=== PATIENT | female | born 1940 | race American Indian/Alaskan Native ===

== ENCOUNTER 2019-06-17 12:15 | Inpatient (IN) | payer MEDICARE, OTHER ==
[2019-06-17 13:01] LABS: Hematocrit 30.6 % (30.3-42.9); Hemoglobin 10.2 gm/dl (10.1-14.3)
[2019-06-17 13:02] LABS: Basophils % (Auto) 0.5 % (0.0-1.8); Eosinophils # (Auto) 0.1 K/mm3 (0.0-0.4); Eosinophils % (Auto) 1.9 % (0.0-4.3); Lymphocytes # (Auto) 1.1 K/mm3 (1.2-5.4); Lymphocytes % (Auto) 23.8 % (13.4-35.0); Mean Corpuscular HGB Conc 33 % (30-34); Mean Corpuscular Volume 99 fl (79-97); Monocytes # (Auto) 0.3 K/mm3 (0.0-0.8); Monocytes % (Auto) 6.9 % (0.0-7.3); Platelet Count 173 K/mm3 (140-440); Red Cell Distribution Width 14.2 % (13.2-15.2)
--- NOTE | 2019-06-17 13:22 | Emergency Department Report ---
ED Syncope HPI - General Chief Complaint: Syncope Stated Complaint: DIZZNESS Time Seen by Provider: 06/17/19 12:32 - History of Present Illness Initial Comments: 79-year-old -Citizen Of [place] female patient with history of hypertension, stage V CKD, and OK (2017) presents to the ED via EMS for dizziness and syncopal episode LENS MAKER. Patient states she was eating on the couch when she suddenly began to feel dizzy. Her states that she lost consciousness for about 30 seconds. They deny any seizure-like activity or head trauma. Patient denies any chest pain, shortness of breath, abdominal pain, urinary symptoms, constipation/hematochezia/melena, vision changes, headache, fevers/chills/sweats, or other symptoms. Patient also denies any current dizziness or recent head trauma. She states she was started on torsemide for he r blood pressure about 1 month ago, but denies any history of CHF. She admits to car ride from [place] yesterday, but denies any leg pain/swelling, history of DVT/PE. Patient states she did have some right-sided neck pain prior to the episode of dizziness and syncope, but denies any injury, stiffness, or fever. Timing/Prior Episodes: no prior history, single episode today - Related Data Allergies/Adverse Reactions: Allergies No Known Allergies Allergy (Verified 06/17/19 12:43) ED Review of Systems ROS: Stated complaint: DIZZNESS Other details as noted in HPI ED Past Medical Hx - Past Medical History Previous Medical History?: Yes Hx Hypertension: Yes Hx Heart Attack/AMI: Yes Additional medical history: CKD (no dialysis) - Surgical History Past Surgical History?: Yes Additional Surgical History: Cardiac stent x1 - Social History Smoking Status: Unknown if ever smoked Substance Use Type: None ED Physical Exam - General Limitations: No Limitations General appearance: alert, in no apparent distress - Head Head exam: Present: atraumatic, normocephalic - Eye Eye exam: Present: normal appearance, PERRL, EOMI. Absent: scleral icterus - ENT ENT exam: Present: normal exam, normal orophraynx - Neck Neck exam: Present: normal inspection, tenderness (mild right paraspinal), full ROM. Absent: lymphadenopathy, thyromegaly - Respiratory Respiratory exam: Present: normal lung sounds bilaterally. Absent: respiratory distress, chest wall tenderness - Cardiovascular Cardiovascular Exam: Present: regular rate, normal rhythm, normal heart sounds. Absent: systolic murmur, diastolic murmur, rubs, gallop - GI/Abdominal GI/Abdominal exam: Present: soft, normal bowel sounds. Absent: distended, tenderness, guarding, rebound, rigid - Extremities Exam Extremities exam: Absent: joint swelling, calf tenderness - Back Exam Back exam: Present: normal inspection, full ROM. Absent: paraspinal tenderness, vertebral tenderness - Neurological Exam Neurological exam: Present: alert, oriented X3, CN II-XII intact. Absent: motor sensory deficit - Expanded Neurological Exam Expanded Speech: Present: fluid speech Cerebellar function: Finger to Nose: Normal, Heel to [place]: Normal, Romberg: Normal Upper motor neuron: Pronator Drift: Normal Sensory exam: Upper Extremity Light Touch: Normal, Lower Extremity Light Touch: Normal Motor strength exam: RUE: 5, LUE: 5, RLE: 5, LLE: 5 - Psychiatric Psychiatric exam: Present: normal affect, normal mood - Skin Skin exam: Present: warm, dry, intact, normal color. Absent: rash, cyanosis, diaphoretic ED Course Vital Signs 06/17/19 06/17/19 06/17/19 12:36 12:42 14:00 Temperature 98.1 F Pulse Rate 64 68 Respiratory 16 16 Rate Blood Pressure 97/51 100/48 [Right] O2 Sat by Pulse 100 100 98 Oximetry 06/17/19 06/17/19 15:11 16:27 Temperature Pulse Rate 61 55 L Respiratory 16 16 Rate Blood Pressure 110/51 117/58 [Right] O2 Sat by Pulse 99 100 Oximetry - Reevaluation(s) Reevaluation #1: 06/17/19 14:11 Glucose noted to be at 279patient denies any history of ED Medical Decision Making - Lab Data Result diagrams: 06/17/19 12:37 06/17/19 12:37 Lab Results 06/17/19 06/17/19 06/17/19 Range/Units 12:37 12:37 12:37 WBC 4.4 L (4.5-11.0) K/mm3 RBC 3.10 L (3.65-5.03) M/mm3 Hgb 10.2 (10.1-14.3) gm/dl Hct 30.6 (30.3-42.9) % MCV 99 H (79-97) fl MCH 33 H (28-32) pg MCHC 33 (30-34) % RDW 14.2 (13.2-15.2) % Plt Count 173 (140-440) K/mm3 Lymph % (Auto) 23.8 (13.4-35.0) % [place] % (Auto) 6.9 (0.0-7.3) % Eos % (Auto) 1.9 (0.0-4.3) % Baso % (Auto) 0.5 (0.0-1.8) % Lymph # 1.1 L (1.2-5.4) K/mm3 [place] # 0.3 (0.0-0.8) K/mm3 Eos # 0.1 (0.0-0.4) K/mm3 Baso # 0.0 (0.0-0.1) K/mm3 Seg Neutrophils % 66.9 (40.0-70.0) % Seg Neutrophils # 3.0 (1.8-7.7) K/mm3 D-Dimer (0-234) ng/mlDDU Sodium 140 (137-145) mmol/L Potassium 4.1 (3.6-5.0) mmol/L Chloride 105.0 (98-107) mmol/L Carbon Dioxide 17 L (22-30) mmol/L Anion Gap 22 mmol/L BUN 35 H (7-17) mg/dL Creatinine 2.5 H (0.7-1.2) mg/dL Estimated GFR 22 ml/min BUN/Creatinine Ratio 14 % Glucose 279 H (65-100) mg/dL Calcium 9.0 (8.4-10.2) mg/dL Magnesium (1.7-2.3) mg/dL Total Bilirubin 0.30 (0.1-1.2) mg/dL AST 12 (5-40) units/L ALT < 5 L (7-56) units/L Alkaline Phosphatase 64 (35-129) units/L Total Creatine Kinase (30-135) units/L CK-MB (CK-2) (0.0-4.0) ng/mL CK-MB (CK-2) Rel Index (0-4) Troponin T < 0.010 (0.00-0.029) ng/mL Total Protein 7.5 (6.3-8.2) g/dL Albumin 3.8 L (3.9-5) g/dL Albumin/Globulin Ratio 1.0 % TSH (0.270-4.200) mlU/mL Urine Color (Yellow) Urine Turbidity (Clear) Urine pH (5.0-7.0) Ur Specific [place] (1.003-1.030) Urine Protein (Negative) mg/dL Urine Glucose (UA) (Negative) mg/dL Urine Ketones (Negative) mg/dL Urine Blood (Negative) Urine Nitrite (Negative) Urine Bilirubin (Negative) Urine Urobilinogen (<2.0) mg/dL Ur Leukocyte Esterase (Negative) Urine WBC (Auto) (0.0-6.0) /HPF Urine RBC (Auto) (0.0-6.0) /HPF U Epithel Cells (Auto) (0-13.0) /HPF Urine Bacteria (Auto) (Negative) /HPF Hyaline Casts /LPF Urine Mucus /HPF Urine Yeast (Budding) /HPF 06/17/19 06/17/19 06/17/19 Range/Units 12:37 12:37 14:40 WBC (4.5-11.0) K/mm3 RBC (3.65-5.03) M/mm3 Hgb (10.1-14.3) gm/dl Hct (30.3-42.9) % MCV (79-97) fl MCH (28-32) pg MCHC (30-34) % RDW (13.2-15.2) % Plt Count (140-440) K/mm3 Lymph % (Auto) (13.4-35.0) % [place] % (Auto) (0.0-7.3) % Eos % (Auto) (0.0-4.3) % Baso % (Auto) (0.0-1.8) % Lymph # (1.2-5.4) K/mm3 [place] # (0.0-0.8) K/mm3 Eos # (0.0-0.4) K/mm3 Baso # (0.0-0.1) K/mm3 Seg Neutrophils % (40.0-70.0) % Seg Neutrophils # (1.8-7.7) K/mm3 D-Dimer 481.86 H (0-234) ng/mlDDU Sodium (137-145) mmol/L Potassium (3.6-5.0) mmol/L Chloride (98-107) mmol/L Carbon Dioxide (22-30) mmol/L Anion Gap mmol/L BUN (7-17) mg/dL Creatinine (0.7-1.2) mg/dL Estimated GFR ml/min BUN/Creatinine Ratio % Glucose (65-100) mg/dL Calcium (8.4-10.2) mg/dL Magnesium 2.10 (1.7-2.3) mg/dL Total Bilirubin (0.1-1.2) mg/dL AST (5-40) units/L ALT (7-56) units/L Alkaline Phosphatase (35-129) units/L Total Creatine Kinase 136 H (30-135) units/L CK-MB (CK-2) 1.3 (0.0-4.0) ng/mL CK-MB (CK-2) Rel Index 0.9 (0-4) Troponin T (0.00-0.029) ng/mL Total Protein (6.3-8.2) g/dL Albumin (3.9-5) g/dL Albumin/Globulin Ratio % TSH (0.270-4.200) mlU/mL Urine Color (Yellow) Urine Turbidity (Clear) Urine pH (5.0-7.0) Ur Specific [place] (1.003-1.030) Urine Protein (Negative) mg/dL Urine Glucose (UA) (Negative) mg/dL Urine Ketones (Negative) mg/dL Urine Blood (Negative) Urine Nitrite (Negative) Urine Bilirubin (Negative) Urine Urobilinogen (<2.0) mg/dL Ur Leukocyte Esterase (Negative) Urine WBC (Auto) (0.0-6.0) /HPF Urine RBC (Auto) (0.0-6.0) /HPF U Epithel Cells (Auto) (0-13.0) /HPF Urine Bacteria (Auto) (Negative) /HPF Hyaline Casts /LPF Urine Mucus /HPF Urine Yeast (Budding) /HPF 06/17/19 06/17/19 Range/Units 14:40 15:36 WBC (4.5-11.0) K/mm3 RBC (3.65-5.03) M/mm3 Hgb (10.1-14.3) gm/dl Hct (30.3-42.9) % MCV (79-97) fl MCH (28-32) pg MCHC (30-34) % RDW (13.2-15.2) % Plt Count (140-440) K/mm3 Lymph % (Auto) (13.4-35.0) % [place] % (Auto) (0.0-7.3) % Eos % (Auto) (0.0-4.3) % Baso % (Auto) (0.0-1.8) % Lymph # (1.2-5.4) K/mm3 [place] # (0.0-0.8) K/mm3 Eos # (0.0-0.4) K/mm3 Baso # (0.0-0.1) K/mm3 Seg Neutrophils % (40.0-70.0) % Seg Neutrophils # (1.8-7.7) K/mm3 D-Dimer (0-234) ng/mlDDU Sodium (137-145) mmol/L Potassium (3.6-5.0) mmol/L Chloride (98-107) mmol/L Carbon Dioxide (22-30) mmol/L Anion Gap mmol/L BUN (7-17) mg/dL Creatinine (0.7-1.2) mg/dL Estimated GFR ml/min BUN/Creatinine Ratio % Glucose (65-100) mg/dL Calcium (8.4-10.2) mg/dL Magnesium (1.7-2.3) mg/dL Total Bilirubin (0.1-1.2) mg/dL AST (5-40) units/L ALT (7-56) units/L Alkaline Phosphatase (35-129) units/L Total Creatine Kinase (30-135) units/L CK-MB (CK-2) (0.0-4.0) ng/mL CK-MB (CK-2) Rel Index (0-4) Troponin T (0.00-0.029) ng/mL Total Protein (6.3-8.2) g/dL Albumin (3.9-5) g/dL Albumin/Globulin Ratio % TSH 1.050 (0.270-4.200) mlU/mL Urine Color Yellow (Yellow) Urine Turbidity Slightly-cloudy (Clear) Urine pH 6.0 (5.0-7.0) Ur Specific [place] 1.012 (1.003-1.030) Urine Protein <15 mg/dl (Negative) mg/dL Urine Glucose (UA) Neg (Negative) mg/dL Urine Ketones Neg (Negative) mg/dL Urine Blood Neg (Negative) Urine Nitrite Neg (Negative) Urine Bilirubin Neg (Negative) Urine Urobilinogen < 2.0 (<2.0) mg/dL Ur Leukocyte Esterase Lg (Negative) Urine WBC (Auto) 74.0 H (0.0-6.0) /HPF Urine RBC (Auto) 10.0 (0.0-6.0) /HPF U Epithel Cells (Auto) 13.0 (0-13.0) /HPF Urine Bacteria (Auto) 1+ (Negative) /HPF Hyaline Casts 3 /LPF Urine Mucus Few /HPF Urine Yeast (Budding) 1+ /HPF - Radiology Data Radiology results: report reviewed CHEST 1 VIEW INDICATION / CLINICAL INFORMATION: syncope. COMPARISON: None available. FINDINGS: SUPPORT DEVICES: None. HEART / MEDIASTINUM: No significant abnormality. LUNGS / PLEURA: No significant pulmonary or pleural abnormality. No pneumothorax. ADDITIONAL FINDINGS: No significant additional findings. IMPRESSION: 1. No acute findings. CT head/brain wo con INDICATION / CLINICAL INFORMATION: 79 years Female; syncope. TECHNIQUE: Routine CT head without contrast. All CT scans at this location are performed using CT dose reduction for ALARA by means of automated exposure control. COMPARISON: None. FINDINGS: BRAIN / INTRACRANIAL CONTENTS: There is moderate cerebral white matter disease most consistent with microvascular angiopathy. There is no CT evidence of acute intracranial hemorr leroy or significant mass effect. There is mild cerebral atrophy. The ventricular system is corresp ondingly appropriate in size and configuration. There is calcification along the lateral aspect of the right temporal lobe measuring 1.9 cm in greatest transverse dimension. This finding may reflect calcified meningioma. However, there is a smaller focus of calcification posteriorly and the findings may reflect incidental hyperostosis. There is mild degree of mass effect upon the lateral right temporal lobe without significant adjacent edema. ORBITS: No significant abnormality of visualized orbits. SINUSES / MASTOIDS: No significant abnormality the visualized paranasal sinuses or mastoid air cells. CRANIOCERVICAL JUNCTION: No significant abnormality. ADDITIONAL FINDINGS: None. IMPRESSION: 1. There is moderate microvascular angiopathy without CT ends of acute intracra nial hemorrhage. 2. There is a 1.9 cm focus of calcification along the lateral right temporal lobe as detailed above. CT cervical spine wo con INDICATION / CLINICAL INFORMATION: 79 years Female; MAIN: syncope, pain NO C COLLAR. TECHNIQUE: Axial CT images of the cervical spine were obtained. Sagittal and coronal reformatted images were produced. All CT scans at this location are performed using CT dose reduction for ALARA by means of automated exposure control. COMPARISON: None available. FINDINGS: POST-SURGICAL CHANGES: None. ALIGNMENT: There is slight curvature of the cervical spine, convex toward the left at. There is minimal anterolisthesis at C3-4 which appears to be on a degenerative basis given the facet joint hypertrophy. VERTEBRAE: There are multilevel degenerative endplate changes involving the cervical spine, particularly at C4-5. However, there is no definitive CT evidence of acute fracture involving the cervical spine. INTRAVERTEBRAL DISCS: The left facet and uncovertebral joint hypertrophy at C2-3 results in mild left neural foraminal narrowing at. There is moderate to marked foraminal narrowing bilaterally at C3-4. The central disc bulge effaces the ventral subarachnoid space. The posterior spondylosis at C4-5 also effaces the ventral subarachnoid space and lateral recesses. There is marked neural foraminal narrowing bilaterally at this level and at C5- 6. The posterior spondylosis at C6-7 effaces the ventral subarachnoid space at. There is moderate to marked foraminal narrowing, greater on the left. There also appears be moderate to marked left foraminal narrowing at C7-T1. The spondylosis at T1-2 encroaches on the right lateral recess. PARASPINAL SOFT TISSUES: No definitive prevertebral soft tissue fluid collections are identified. There is an incidental calcified granuloma within the visualized left upper lung. All CT scans at this location are performed using the CT dose reduction for ALARA by means of automated exposure control. ADDITIONAL FINDINGS: None. IMPRESSION: 1. There is no definitive CT evidence of acute fracture involving the cervical spine. 2. There are multilevel degenerative changes as detailed above. 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 She denies any other symptoms currently further dizziness. CT head is without acute findings. WBCs are normal. CMP is consistent with p atient states 5 kidney disease. Mental negative. EKG is without acute findings. UA shows urinary tract infection. Patient states she was treated for a urinary tract infection one month ago by her primary care provider, however she denies any urinary symptoms. Anionic gap elevated at 22. DQ scan is negative for PE. Discussed patient with Dr. Garcia, [facility] with admission for observation. Critical care attestation.: If time is entered above; I have spent that time in minutes in the direct care of this critically ill patient, excluding procedure time. ED Disposition Clinical Impression: Syncope and collapse, Hyperglycemia UTI (urinary tract infection) Qualifiers: Urinary tract infection type: acute cystitis Hematuria presence: without hematuria Qualified Code(s): N30.00 - Acute cystitis without hematuria Disposition: OP ADMIT IP TO THIS HOSP Is pt being admited?: Yes Condition: Stable Instructions: Syncope (ED) Referrals: CHRIS GONZALEZ MD [Other] - 3-5 Days
[2019-06-17 13:23] LABS: Albumin 3.8 g/dL (3.9-5); BUN/Creatinine Ratio 14; Blood Urea Nitrogen 35 mg/dL (7-17); Hemolysis Index 2
--- NOTE | 2019-06-17 13:30 | XRay Report ---
CHEST 1 VIEW INDICATION / CLINICAL INFORMATION: syncope. COMPARISON: None available. FINDINGS: SUPPORT DEVICES: None. HEART / MEDIASTINUM: No significant abnormality. LUNGS / PLEURA: No significant pulmonary or pleural abnormality. No pneumothorax. ADDITIONAL FINDINGS: No significant additional findings. IMPRESSION: 1. No acute findings. Signer Name: Kelly Nava MD Signed: 06/17/2019 1:25 PM Workstation Name: [id number]
[2019-06-17 13:37] LABS: Alanine Aminotransferase < 5 units/L (7-56)
[2019-06-17 14:02] LABS: Creatine Kinase MB 1.3 ng/mL (0.0-4.0)
--- NOTE | 2019-06-17 15:00 | Cat Scan Report ---
CT head/brain wo con INDICATION / CLINICAL INFORMATION: 79 years Female; syncope. TECHNIQUE: Routine CT head without contrast. All CT scans at this location are performed using CT dos e reduction for ALARA by means of automated exposure control. COMPARISON: None. FINDINGS: BRAIN / INTRACRANIAL CONTENTS: There is moderate cerebral white matter disease most consistent with m icrovascular angiopathy. There is no CT evidence of acute intracranial hemorrhage or significant mass effect. There is mild cerebral atrophy. The ventricular system is correspondingly appropriate in siz e and configuration. There is calcification along the lateral aspect of the right temporal lobe measuring 1.[address] transverse dimension. This finding may reflect calcified meningioma. However, there is a smaller f ocus of calcification posteriorly and the findings may reflect incidental hyperostosis. There is mild degree of mass effect upon the lateral right temporal lobe without significant adjacent edema. ORBITS: No significant abnormality of visualized orbits. SINUSES / MASTOIDS: No significant abnormality the visualized paranasal sinuses or mastoid air cells. CRANIOCERVICAL JUNCTION: No significant abnormality. ADDITIONAL FINDINGS: None. IMPRESSION: 1. There is moderate microvascular angiopathy without CT ends of acute intracranial hemorrhage. 2. There is a 1.9 cm focus of calcification along the lateral right temporal lobe as detailed above. Signer Name: Jose Pitts MD Signed: 06/17/2019 2:56 PM Workstation Name: [id number]
--- NOTE | 2019-06-17 15:16 | Cat Scan Report ---
CT cervical spine wo con INDICATION / CLINICAL INFORMATION: 79 years Female; MAIN: syncope, pain NO C COLLAR. TECHNIQUE: Axial CT images of the cervical spine were obtained. Sagittal and coronal reformatted images were pr oduced. All CT scans at this location are performed using CT dose reduction for ALARA by means of aut omated exposure control. COMPARISON: None available. FINDINGS: POST-SURGICAL CHANGES: None. ALIGNMENT: There is slight curvature of the cervical spine, convex toward the left at. There is minim al anterolisthesis at C3-4 which appears to be on a degenerative basis given the facet joint hypertro phy. VERTEBRAE: There are multilevel degenerative endplate changes involving the cervical spine, particula rly at C4-5. However, there is no definitive CT evidence of acute fracture involving the cervical sp ine. INTRAVERTEBRAL DISCS: The left facet and uncovertebral joint hypertrophy at C2-3 results in mild left neural foraminal narrowing at. There is moderate to marked foraminal narrowing bilaterally at C3-4. The central disc bulge effaces the ventral subarachnoid space. The posterior spondylosis at C4-5 also effaces the ventral subarachnoid space and lateral recesses. T here is marked neural foraminal narrowing bilaterally at this level and at C5-6. The posterior spondylosis at C6-7 effaces the ventral subarachnoid space at. There is moderate to mar ked foraminal narrowing, greater on the left. There also appears be moderate to marked left foraminal narrowing at C7-T1. The spondylosis at T1-2 encroaches on the right lateral recess. PARASPINAL SOFT TISSUES: No definitive prevertebral soft tissue fluid collections are identified. The re is an incidental calcified granuloma within the visualized left upper lung. All CT scans at this l ocation are performed using the CT dose reduction for ALARA by means of automated exposure control. ADDITIONAL FINDINGS: None. IMPRESSION: 1. There is no definitive CT evidence of acute fracture involving the cervical spine. 2. There are multilevel degenerative changes as detailed above. Signer Name: Jose Pitts MD Signed: 06/17/2019 3:12 PM Workstation Name: [id number]
[2019-06-17 16:05] LABS: Bacteria,Urine 1+ /HPF (Negative); Bilirubin,Urine NEG (Negative); Blood,Urine NEG (Negative); Color,Urine Yellow (Yellow); Hyaline Casts,Urine 3 /LPF; Mucus,Urine FEW /HPF; Protein,Urine <15 mg/dL mg/dL (Negative); Urobilinogen,Urine < 2.0 mg/dL (<2.0)
[2019-06-17] MEDS ORDERED: cefTRIAXone/NS 1 GM/50 ML 1 GM/50 ML BAG IV ONE ×2 (16:52→18:55)
--- NOTE | 2019-06-17 17:24 | Nuclear Medicine Report ---
V/Q Scan HISTORY: syncope, +dimer. TECHNIQUE: Patient was given 16.2 mCi of xenon-133 and 5.4 mCi of technetium MAA. COMPARISON: Chest x-ray from today FINDINGS: No significant mismatch between ventilation and perfusion imaging. IMPRESSION: Low probability for PTE. Signer Name: Miller Eason MD Signed: 06/17/2019 5:19 PM Workstation Name: [id number]
[2019-06-17] MEDS ORDERED: ALBUTEROL 2.5 MG/3 ML NEBU IH PRN (17:50)
[2019-06-17] MEDS ORDERED: ACETAMINOPHEN 325 MG TAB PO PRN (17:50)
[2019-06-17] MEDS ORDERED: ONDANSETRON 4 MG/2 ML INJ IV PRN (17:50)
--- NOTE | 2019-06-17 17:50 | History and Physical Report ---
History of Present Illness Chief complaint: I just passed out History of present illness: 79 YO Female with HTN, PR, CAD S/P Stent Placement, CKD presents to ED for evaluation. Pt states that she was in her usual state of health this morning, until she experienced a sudden onset of dizziness and weakness while sitting which was subsequently followed by a loss of consciousness. Witness report loss of consciousness for approximately 30 seconds. EMS notified, and upon arrival the patient was found to be hypotensive with systolic blood pressure in the 80's and in distress. Pt treated with IVF resuscitation therapy and transported to [facility]. Pt seen and evaluated in ED and found to have UTI, ROLLY, volume Depletion, as well as Syncope. Pt acknowledges decreased oral intake and generalized malaise over the past week. Pt denies fever, chills, chest pain, shortness of breath, abdominal pain, BRBPR, constipation/hematochezia/melena, skin rash, vision changes, headache, or recent ill contacts. No prior admission for review. All listed medication at time of admission has been reconciled. Past History Past Medical History: other (see hpi) Past Surgical History: Other (cardiac stent placement) Social history: single, Lives alone. denies: smoking, alcohol abuse, prescription drug abuse Family history: CAD, hypertension Medications and Allergies Allergies Allergy/AdvReac Type Severity Reaction Status Date / Time No Known Allergies Allergy Verified 06/17/19 12:43 Review of Systems Constitutional: malaise, no weight loss, no weight gain, no fever, no chills Ears, nose, mouth and throat: no ear pain, no ear discharge, no tinnitis, no decreased hearing, no nose pain, no nasal congestion Cardiovascular: syncope, no chest pain, no orthopnea, no palpitations Respiratory: no cough, no cough with sputum, no excessive sputum, no shortness of breath Gastrointestinal: no nausea, no vomiting, no diarrhea, no constipation Genitourinary Female: no pelvic pain, no flank pain, no menorrhagia, no dysuria Rectal: no pain, no incontinence, no bleeding Musculoskeletal: no neck pain, no shooting arm pain, no shooting leg pain, no leg numbness/tingling, no muscle weakness, no muscle cramps Integumentary: no rash, no pruritis, no redness, no wounds, no jaundice Neurological: no transient paralysis, no paralysis, no parathesias, no numbness, no seizures, no tremors, no lack of coordination Psychiatric: no anxiety, no memory loss, no change in sleep habits, no sleep disturbances, no hypersomnia, no change in appetite, no suicidal ideation, no disorientation Endocrine: no cold intolerance, no polydipsia, no nocturia, no excessive sw eating Hematologic/Lymphatic: no easy bruising, no lymphadenopathy, no lymphedema Allergic/Immunologic: no urticaria, no allergic rhinitis, no anaphylaxis Exam - Constitutional Vitals: Temp Pulse Resp BP Pulse Ox 98.1 F 55 L 16 117/58 100 06/17/19 12:36 06/17/19 16:27 06/17/19 16:27 06/17/19 16:27 06/17/19 16:27 General appearance: Present: mild distress - EENT Eyes: Present: PERRL ENT: hearing intact, clear oral mucosa - Neck Neck: Present: supple, normal ROM - Respiratory Respiratory effort: normal Respiratory: bilateral: CTA - Cardiovascular Heart Sounds: Present: S1 & S2. Absent: rub, click - Extremities Extremities: pulses symmetrical, No edema Peripheral Pulses: within normal limits - Abdominal General gastrointestinal: Present: soft, non-tender, non-distended, normal bowel sounds Female genitourinary: Present: normal - Integumentary Integumentary: Present: clear, warm, dry - Musculoskeletal Musculoskeletal: gait normal, strength equal bilaterally - Psychiatric Psychiatric: appropriate mood/affect, intact judgment & insight - Neurologic Neurologic: CNII-XII intact, moves all extremities Results - Labs CBC & Chem 7: 06/17/19 12:37 06/17/19 12:37 Labs: Abnormal lab results 06/17/19 06/17/19 06/17/19 Range/Units 12:37 12:37 12:37 WBC 4.4 L (4.5-11.0) K/mm3 RBC 3.10 L (3.65-5.03) M/mm3 MCV 99 H (79-97) fl MCH 33 H (28-32) pg Lymph # 1.1 L (1.2-5.4) K/mm3 D-Dimer (0-234) ng/mlDDU Carbon Dioxide 17 L (22-30) mmol/L BUN 35 H (7-17) mg/dL Creatinine 2.5 H (0.7-1.2) mg/dL Glucose 279 H (65-100) mg/dL ALT < 5 L (7-56) units/L Total Creatine Kinase 136 H (30-135) units/L Albumin 3.8 L (3.9-5) g/dL Urine WBC (Auto) (0.0-6.0) /HPF 06/17/19 06/17/19 Range/Units 14:40 15:36 WBC (4.5-11.0) K/mm3 RBC (3.65-5.03) M/mm3 MCV (79-97) fl MCH (28-32) pg Lymph # (1.2-5.4) K/mm3 D-Dimer 481.86 H (0-234) ng/mlDDU Carbon Dioxide (22-30) mmol/L BUN (7-17) mg/dL Creatinine (0.7-1.2) mg/dL Glucose (65-100) mg/dL ALT (7-56) units/L Total Creatine Kinase (30-135) units/L Albumin (3.9-5) g/dL Urine WBC (Auto) 74.0 H (0.0-6.0) /HPF Assessment and Plan - Patient Problems (1) UTI (urinary tract infection) Current Visit: Yes Status: Acute Qualifiers: Urinary tract infection type: acute cystitis Hematuria presence: without hematuria Qualified Code(s): N30.00 - Acute cystitis without hematuria Plan to address problem: Urinalysis, IV antibiotic therapy, CBC, CMP, monitor uop q shift, supportive care. (2) Syncope and collapse Current Visit: Yes Status: Acute Plan to address problem: CT head, Echo, remote telemetry monitoring, carotid doppler (3) ROLLY (acute kidney injury) Current Visit: Yes Status: Acute Plan to address problem: IVF resuscitation therapy, monitor uop q shift, avoid nephrotoxic agents, urine electrolytes, (4) HTN (hypertension) Current Visit: Yes Status: Acute Qualifiers: Hypertension type: essential hypertension Qualified Code(s): I10 - Essential (primary) hypertension Plan to address problem: Monitor bp q shift, continue medical management (5) CAD (coronary artery disease) Current Visit: Yes Status: Acute Qualifiers: Associated angina: without angina Plan to address problem: lipid panel, low cholesterol diet, supportive care. (6) Advance care planning Current Visit: Yes Status: Acute Plan to address problem: +30 min. Pt is full code, Pt prognosis and care plan discussed with patient and patient son, who is at bedside during exam and interview. Pt and family acknowledge understanding and agreement with care plan. (7) DVT prophylaxis Current Visit: Yes Status: Acute Plan to address problem: SCD to BLE while in bed, Pt ambulatory
[2019-06-18 04:35] LABS: Basophils % (Auto) 0.5 % (0.0-1.8); Eosinophils # (Auto) 0.1 K/mm3 (0.0-0.4); Eosinophils % (Auto) 1.5 % (0.0-4.3); Hematocrit 30.8 % (30.3-42.9); Hemoglobin 10.2 gm/dl (10.1-14.3); Lymphocytes # (Auto) 1.3 K/mm3 (1.2-5.4); Lymphocytes % (Auto) 29.4 % (13.4-35.0); Mean Corpuscular HGB Conc 33 % (30-34); Mean Corpuscular Volume 99 fl (79-97); Monocytes # (Auto) 0.4 K/mm3 (0.0-0.8); Monocytes % (Auto) 8.7 % (0.0-7.3); Platelet Count 159 K/mm3 (140-440); Red Blood Count 3.12 M/mm3 (3.65-5.03); Red Cell Distribution Width 14.6 % (13.2-15.2)
[2019-06-18 04:57] LABS: Albumin 3.9 g/dL (3.9-5); Calcium 9.2 mg/dL (8.4-10.2)
--- NOTE | 2019-06-18 07:50 | Progress Note ---
Assessment and Plan Assessment and plan: -- UTI (urinary tract infection) Current Visit: Yes Status: Acute Empiric IV antibiotic ,follow cultures and supportive care --syncope: Current Visit: Yes Status: Acute Syncope workup in progress Fall precautions , no new episodes since admission -- ROLLY (acute kidney injury) versus acute on chronic kidney disease Current Visit: Yes Status: Acute vasomotor nephropathy , IV fluids Mild improvement avoid nephrotoxins, nephrology evaluation if needed -- HTN (hypertension) Current Visit: Yes Status: Acute Monitor bp q shift, continue medical management -- CAD (coronary artery disease) Current Visit: Yes Status: Acute lipid panel, low cholesterol diet, supportive care. -- Advance care planning/Full code Current Visit: Yes Status: Acute CODE STATUS full code --DVT prophylaxis Current Visit: Yes Status: Acute SCD to BLE while in bed, Pt ambulatory Plan of care is reviewed with the patient, family and her nurse Follow-up syncope workup, urine cultures, and function May discharge home when medically stable History Interval history: Patient seen and examined medical records reviewed Admitted with syncope, workup is in progress No new episodes of syncope since admission patient feels slightly better,Denies headache or dizziness Vital signs reviewed Hospitalist Physical - Constitutional Vitals: Temp Pulse Resp BP Pulse Ox 98.6 F 89 18 124/63 90 06/18/19 02:19 06/18/19 02:28 06/18/19 02:19 06/18/19 02:19 06/18/19 02:28 General appearance: Present: mild distress, well-nourished - EENT Eyes: Present: PERRL, EOM intact - Neck Neck: Present: supple, normal ROM - Respiratory Respiratory effort: normal Respiratory: bilateral: diminished, negative: rales, rhonchi, wheezing - Cardiovascular Rhythm: regular Heart Sounds: Present: S1 & S2 - Extremities Extremities: no ischemia, No edema - Abdominal General gastrointestinal: soft, non-tender, non-distended, normal bowel sounds - Integumentary Integumentary: Present: clear, warm - Psychiatric Psychiatric: appropriate mood/affect, cooperative - Neurologic Neurologic: moves all extremities Results - Labs CBC & Chem 7: 06/18/19 03:55 06/18/19 03:55 Labs: Laboratory Last Values WBC 4.4 K/mm3 (4.5-11.0) L 06/18/19 03:55 RBC 3.12 M/mm3 (3.65-5.03) L 06/18/19 03:55 Hgb 10.2 gm/dl (10.1-14.3) 06/18/19 03:55 Hct 30.8 % (30.3-42.9) 06/18/19 03:55 MCV 99 fl (79-97) H 06/18/19 03:55 MCH 33 pg (28-32) H 06/18/19 03:55 MCHC 33 % (30-34) 06/18/19 03:55 RDW 14.6 % (13.2-15.2) 06/18/19 03:55 Plt Count 159 K/mm3 (140-440) 06/18/19 03:55 Lymph % (Auto) 29.4 % (13.4-35.0) 06/18/19 03:55 [place] % (Auto) 8.7 % (0.0-7.3) H 06/18/19 03:55 Eos % (Auto) 1.5 % (0.0-4.3) 06/18/19 03:55 Baso % (Auto) 0.5 % (0.0-1.8) 06/18/19 03:55 Lymph # 1.3 K/mm3 (1.2-5.4) 06/18/19 03:55 [place] # 0.4 K/mm3 (0.0-0.8) 06/18/19 03:55 Eos # 0.1 K/mm3 (0.0-0.4) 06/18/19 03:55 Baso # 0.0 K/mm3 (0.0-0.1) 06/18/19 03:55 Seg Neutrophils % 59.9 % (40.0-70.0) 06/18/19 03:55 Seg Neutrophils # 2.6 K/mm3 (1.8-7.7) 06/18/19 03:55 D-Dimer 481.86 ng/mlDDU (0-234) H 06/17/19 14:40 Sodium 142 mmol/L (137-145) 06/18/19 03:55 Potassium 3.9 mmol/L (3.6-5.0) 06/18/19 03:55 Chloride 108.4 mmol/L (98-107) H 06/18/19 03:55 Carbon Dioxide 22 mmol/L (22-30) 06/18/19 03:55 Anion Gap 16 mmol/L 06/18/19 03:55 BUN 31 mg/dL (7-17) H 06/18/19 03:55 Creatinine 2.2 mg/dL (0.7-1.2) H 06/18/19 03:55 Estimated GFR 26 ml/min 06/18/19 03:55 BUN/Creatinine Ratio 14 % 06/18/19 03:55 Glucose 88 mg/dL (65-100) 06/18/19 03:55 Calcium 9.2 mg/dL (8.4-10.2) 06/18/19 03:55 Magnesium 2.10 mg/dL (1.7-2.3) 06/17/19 12:37 Total Bilirubin 0.30 mg/dL (0.1-1.2) 06/18/19 03:55 AST 12 units/L (5-40) 06/18/19 03:55 ALT 5 units/L (7-56) L 06/18/19 03:55 Alkaline Phosphatase 61 units/L (35-129) 06/18/19 03:55 Total Creatine Kinase 136 units/L (30-135) H 06/17/19 12:37 CK-MB (CK-2) 1.3 ng/mL (0.0-4.0) 06/17/19 12:37 CK-MB (CK-2) Rel Index 0.9 (0-4) 06/17/19 12:37 Troponin T < 0.010 ng/mL (0.00-0.029) 06/17/19 12:37 Total Protein 7.0 g/dL (6.3-8.2) 06/18/19 03:55 Albumin 3.9 g/dL (3.9-5) 06/18/19 03:55 Albumin/Globulin Ratio 1.3 % 06/18/19 03:55 TSH 1.050 mlU/mL (0.270-4.200) 06/17/19 14:40 Urine Color Yellow (Yellow) 06/17/19 15:36 Urine Turbidity Slightly-cloudy (Clear) 06/17/19 15:36 Urine pH 6.0 (5.0-7.0) 06/17/19 15:36 Ur Specific [place] 1.012 (1.003-1.030) 06/17/19 15:36 Urine Protein <15 mg/dl mg/dL (Negative) 06/17/19 15:36 Urine Glucose (UA) Neg mg/dL (Negative) 06/17/19 15:36 Urine Ketones Neg mg/dL (Negative) 06/17/19 15:36 Urine Blood Neg (Negative) 06/17/19 15:36 Urine Nitrite Neg (Negative) 06/17/19 15:36 Urine Bilirubin Neg (Negative) 06/17/19 15:36 Urine Urobilinogen < 2.0 mg/dL (<2.0) 06/17/19 15:36 Ur Leukocyte Esterase Lg (Negative) 06/17/19 15:36 Urine WBC (Auto) 74.0 /HPF (0.0-6.0) H 06/17/19 15:36 Urine RBC (Auto) 10.0 /HPF (0.0-6.0) 06/17/19 15:36 U Epithel Cells (Auto) 13.0 /HPF (0-13.0) 06/17/19 15:36 Urine Bacteria (Auto) 1+ /HPF (Negative) 06/17/19 15:36 Hyaline Casts 3 /LPF 06/17/19 15:36 Urine Mucus Few /HPF 06/17/19 15:36 Urine Yeast (Budding) 1+ /HPF 06/17/19 15:36 Active Medications - Current Medications Current Medications: Generic Name Dose Route Start Last Admin Trade Name Freq PRN Reason Stop Dose Admin Acetaminophen 650 mg 06/17/19 17:50 Tylenol PO Q4H PRN Pain MILD(1-3)/Fever >100.5/HARMON Albuterol 2.5 mg 06/17/19 17:50 Proventil IH Q4HRT PRN Shortness Of Breath Ceftriaxone Sodium 1 gm in 50 mls @ 100 mls/hr 06/18/19 10:00 Rocephin/Ns 1 Gm/50 Ml IV Q24H EVER Protocol Ondansetron HCl 4 mg 06/17/19 17:50 Zofran IV Q8H PRN Nausea And Vomiting Pneumococcal Polyvalent Vaccine 0.5 ml 06/18/19 12:00 Pneumovax 23 IM 06/18/19 12:01 .ONCE ONE Sodium Chloride 10 ml 06/17/19 22:00 06/17/19 21:57 Sodium Chloride Flush Syringe 10 Ml IV 10 ml BID EVER Administration Sodium Chloride 10 ml 06/17/19 17:50 Sodium Chloride Flush Syringe 10 Ml IV PRN PRN LINE FLUSH
[2019-06-18] MEDS: cefTRIAXone/NS 1 GM/50 ML 1 GM/50 ML BAG IV SCH (09:23)
[2019-06-18] MEDS ORDERED: PNEUMOCOCCAL 23 Valent 0.5 ML VIAL IM ONE (12:00)
--- NOTE | 2019-06-18 12:08 | Vascular Lab Report ---
"DUPLEX DOPPLER ULTRASOUND CAROTID, BILATERAL INDICATION: syncope. FINDINGS: RIGHT CAROTID: Mild atherosclerotic plaque Right CCA velocity: 98 cm/sec. Right ICA peak systolic velocity: 93 cm/sec. ICA/CCA PSV Ratio: 1.1. Right Vertebral Artery: Antegrade flow. LEFT CAROTID: Mild atherosclerotic plaque. Left CCA velocity: 122 cm/sec. Left ICA peak systolic velocity: 98 cm/sec. ICA/CCA PSV Ratio: 1.1. Left Vertebral Artery: Antegrade flow. IMPRESSION: 1. Right Internal Carotid Artery: Less than 50% diameter stenosis. 2. Left Internal Carotid Artery: Less than 50% diameter stenosis. Velocity criteria are extrapolated from diameter data as defined by the Society of Radiologists in Ul trasound Consensus Conference, Radiology 2003; 229;340-346. Degree of Stenosis (%) || ICA PSV (cm/sec) || Plaque estimate (%) || ICA/CCA PSV Ratio Normal <125 None <2.0 <50 <125 <50 <2.0 50-69 125-230 50 2.0-4.0 70 but less than 100 >230 50 >4.0 Near occlusion High, low, or none visible variable Total occlusion None visible; no lumen N/A Signer Name: Oscar Mccormick MD Signed: 06/18/2019 12:03 PM Workstation Name: [email or web address]"
--- NOTE | 2019-06-18 16:32 | Vascular Lab Report ---
DUPLEX DOPPLER LOWER EXTREMITY VEINS, BILATERAL INDICATION / CLINICAL INFORMATION: D dimers/r/o DVT. TECHNIQUE: Duplex doppler imaging was performed through the veins of both lower extremities using venous candice herber and other maneuvers. COMPARISON: None available. FINDINGS: Right Common Femoral vein: Negative. Right Femoral vein: Negative. Right Popliteal vein: Negative. Right Calf veins: Negative. Left Common Femoral vein: Negative. Left Femoral vein: Negative. Left Popliteal vein: Negative. Left Calf veins: Negative. Additional findings: Small amount of subcutaneous edema/trace fluid collection in both knees and the left popliteal fossa, with the left popliteal fossa collection measuring up to 1.6 x 0.8 cm. IMPRESSION: 1. No sonographic evidence for DVT in either lower extremity. 2. Small soft tissue fluid collections noted in both knees. Signer Name: Kelly Nava MD Signed: 06/18/2019 4:28 PM Workstation Name: [id number]
[2019-06-18] MEDS: HEPARIN 5,000 UNIT/1 ML VIAL SUB-Q SCH (22:09)
[2019-06-19 05:49] LABS: Calcium 9.2 mg/dL (8.4-10.2)
[2019-06-19] MEDS: cefTRIAXone/NS 1 GM/50 ML 1 GM/50 ML BAG IV SCH (09:30)
[2019-06-19] MEDS: HEPARIN 5,000 UNIT/1 ML VIAL SUB-Q SCH ×2 (09:32→22:14)
--- NOTE | 2019-06-19 16:31 | Progress Note ---
Assessment and Plan ROLLY (acute kidney injury) versus acute on chronic kidney disease Current Visit: Yes Status: Acute vasomotor nephropathy , IV fluids Mild improvement avoid nephrotoxins, nephrology evaluation Creatinine improved from 2.5 to 1.8 UTI (urinary tract infection) Current Visit: Yes Status: Acute IV antibiotics ,Cultures--Negative syncope: Current Visit: Yes Status: Acute Syncope workup negative Fall precautions , no new episodes since admission Needs Home PT HTN (hypertension) Current Visit: Yes Status: Acute Continue antihypertensives CAD (coronary artery disease) Current Visit: Yes Status: Acute lipid panel, low cholesterol diet, supportive care. - Advance care planning/Full code Current Visit: Yes Status: Acute CODE STATUS full code --DVT prophylaxis Current Visit: Yes Status: Acute SCD to BLE while in bed, Pt ambulatory Possible discharge tomorrow If creatinine normalizes Subjective Date of service: 06/19/19 Principal diagnosis: ROLLY and UTI Interval history: 79 YO Female with HTN, [place], CAD S/P Stent Placement, CKD presents to ED for evaluation. Pt states that she was in her usual state of health this morning, until she experienced a sudden onset of dizziness and weakness while sitting which was subsequently followed by a loss of consciousness. Witness report loss of consciousness for approximately 30 seconds. EMS notified, and upon arrival the patient was found to be hypotensive with systolic blood pressure in the 80's and in distress. Pt treated with IVF resuscitation therapy and transported to [facility]. Pt seen and evaluated in ED and found to have UTI, ROLLY, volume Depletion, as well as Syncope. Pt acknowledges decreased oral intake and generalized malaise over the past week. Pt denies fever, chills, chest pain, shortness of breath, abdominal pain, BRBPR, constipation/hematochezia/melena, skin rash, vision changes, headache, or recent ill contacts. No prior admission for review. All listed medication at time of admission has been reconciled. Symptomatically better. Good po intake Objective - Constitutional Vitals: Vital Signs - 12hr 06/19/19 06/19/19 06/19/19 07:24 10:00 12:57 Temperature 98.6 F 97.6 F Pulse Rate 61 66 Pulse Rate [ 61 Apical] Respiratory 20 20 18 Rate Blood Pressure 146/66 174/75 Blood Pressure [Right] O2 Sat by Pulse 98 98 100 Oximetry 06/19/19 06/19/19 06/19/19 13:00 15:47 15:49 Temperature Pulse Rate Pulse Rate [ Apical] Respiratory Rate Blood Pressure 170/73 157/75 Blood Pressure 162/79 [Right] O2 Sat by Pulse Oximetry 06/19/19 15:51 Temperature Pulse Rate Pulse Rate [ Apical] Respiratory Rate Blood Pressure 167/67 Blood Pressure [Right] O2 Sat by Pulse Oximetry General appearance: Present: no acute distress, well-nourished - EENT Eyes: PERRL, EOM intact ENT: hearing intact, clear oral mucosa Ears: bilateral: normal - Neck Neck: supple, normal ROM - Respiratory Respiratory effort: normal Respiratory: bilateral: CTA - Breasts Breasts: normal - Cardiovascular Heart rate: 80 Rhythm: regular Heart Sounds: Present: S1 & S2. Absent: gallop, rub Extremities: no ischemia, pulses intact, No edema, normal color, Full ROM - Gastrointestinal General gastrointestinal: Present: soft, non-tender, non-distended, normal bowel sounds - Genitourinary Female genitourinary: deferred - Integumentary Integumentary: clear, warm, dry - Musculoskeletal Musculoskeletal: 1, strength equal bilaterally - Neurologic Neurologic: moves all extremities - Psychiatric Psychiatric: memory intact, appropriate mood/affect, intact judgment & insight - Labs CBC & Chem 7: 06/18/19 03:55 06/19/19 04:35 Labs: Abnormal lab results 06/19/19 Range/Units 04:35 Chloride 110.8 H (98-107) mmol/L Carbon Dioxide 20 L (22-30) mmol/L BUN 25 H (7-17) mg/dL Creatinine 1.8 H (0.7-1.2) mg/dL
[2019-06-19] MEDS ORDERED: TYLENOL 500 MG PO PRN (17:05)
[2019-06-19] MEDS ORDERED: MICARDIS 80 MG PO SCH (17:15)
[2019-06-19] MEDS: CHOLECALCIFEROL (VIT D3) 1000 UNIT TAB PO SCH (17:45)
[2019-06-19] MEDS: ASPIRIN EC 81 MG TAB PO SCH (17:45)
[2019-06-19] MEDS: NIFEdipine XL 60 MG TAB PO SCH (17:46)
[2019-06-19] MEDS: TORSEMIDE 10 MG TAB PO SCH (17:46)
[2019-06-19] MEDS: LOSARTAN 50 MG TAB PO SCH (17:46)
[2019-06-19] MEDS: carvediloL 25 MG TAB PO SCH (22:09)
[2019-06-19] MEDS: SODIUM BICARBONATE 650 MG TAB PO SCH (22:10)
[2019-06-20] MEDS: CHOLECALCIFEROL (VIT D3) 1000 UNIT TAB PO SCH (09:22)
[2019-06-20] MEDS: SODIUM BICARBONATE 650 MG TAB PO SCH (09:22)
[2019-06-20] MEDS: TORSEMIDE 10 MG TAB PO SCH (09:23)
[2019-06-20] MEDS: ASPIRIN EC 81 MG TAB PO SCH (09:23)
[2019-06-20] MEDS: carvediloL 25 MG TAB PO SCH (09:23)
[2019-06-20] MEDS: NIFEdipine XL 60 MG TAB PO SCH (09:23)
[2019-06-20] MEDS: HEPARIN 5,000 UNIT/1 ML VIAL SUB-Q SCH (09:24)
[2019-06-20] MEDS: LOSARTAN 50 MG TAB PO SCH (09:24)
[2019-06-20] MEDS: cefTRIAXone/NS 1 GM/50 ML 1 GM/50 ML BAG IV SCH (09:25)
--- NOTE | 2019-06-20 12:37 | Discharge Summary ---
Providers - Providers Date of Admission: 06/17/19 17:50 Attending physician: GRIFFIN VARGHESE MD 06/19/19 21:49 Consult to Physician [CONS] Routine Comment: Consulting Provider: SANDOR VEGA Physician Instructions: Reason For Exam: ROLLY 06/19/19 21:50 Consult to Case Management [CONS] Routine Services Needed at Discharge: Home Health Services Comment:: Patient needs Physical therapy at home Hospitalization Condition: Stable Disposition: DC-30 STILL A PATIENT Exam - Constitutional Vitals: Temp Pulse Resp BP Pulse Ox 98.1 F 62 18 136/63 100 06/20/19 07:54 06/20/19 10:00 06/20/19 10:00 06/20/19 09:24 06/20/19 10:00 Plan Follow up with: CHRIS GONZALEZ MD [Other] - 3-5 Days
--- NOTE | 2019-06-20 13:31 | Consultation ---
History of Present Illness - Reason for Consult Consult date: 06/20/19 acute renal failure, chronic renal failure - History of Present Illness The patient is a 79 YO female with history significant for HTN, HLD, CAD S/P Stent Placement and CKD stage 4 who presented to [facility] ED 06/17 after she passed out at home. Patient could exactly remember the events prior to passing out. Family member reported loss of consciousness for approximately 30 seconds. In the ED her initial BP was around 90/40s. Pt was treated with IVF resuscitation therapy. Patient was admitted for further evaluation of syncope. labs were significant for creatinine 2.5. Pt denies fever, chills, N, V, D, abd pain, dy suria, hematuria, chest pain, shortness of breath, melena, skin rash, HARMON or recent ill contacts. Nephrology was consulted for further evaluation. Past History Past Medical History: acute [place], hypertension, hyperlipidemia, renal failure, other (see hpi) Past Surgical History: Other (cardiac stent placement) Social history: single, Lives alone. denies: smoking, alcohol abuse, prescription drug abuse Family history: CAD, hypertension Medications and Allergies Allergies Allergy/AdvReac Type Severity Reaction Status Date / Time No Known Allergies Allergy Verified 06/17/19 12:43 Home Medications Medication Instructions Recorded Confirmed Last Taken Type Aspirin 81 mg PO DAILY 06/17/19 06/17/19 Unknown History Atorvastatin 40 mg PO QHS 06/17/19 06/17/19 Unknown History Micardis 80 mg PO DAILY 06/17/19 06/17/19 Unknown History Nifedipine 60 mg PO DAILY 06/17/19 06/17/19 Unknown History Sodium Bicarbonate 650 mg PO BID 06/17/19 06/17/19 Unknown History Torsemide 10 mg PO DAILY 06/17/19 06/17/19 Unknown History Tylenol 500 mg PO Q8HR PRN MDD 1000 06/17/19 06/17/19 Unknown History Vitamin D3 1,000 UNIT TAB 1,000 unit PO DAILY 06/17/19 06/17/19 Unknown History carvediloL 25 mg PO BID 06/17/19 06/17/19 Unknown History Active Meds: Active Medications Acetaminophen (Tylenol) 650 mg PO Q4H PRN PRN Reason: Pain MILD(1-3)/Fever >100.5/HARMON Albuterol (Proventil) 2.5 mg IH Q4HRT PRN PRN Reason: Shortness Of Breath Aspirin (Halfprin Ec) 81 mg PO QDAY [facility] Last Admin: 06/20/19 09:23 Dose: 81 mg Documented by: Atorvastatin Calcium (Lipitor) 40 mg PO QHS [facility] Last Admin: 06/19/19 22:09 Dose: 40 mg Documented by: Carvedilol (Coreg) 25 mg PO BID [facility] Last Admin: 06/20/19 09:23 Dose: 25 mg Documented by: Cholecalciferol (Vitamin D3) 1,000 unit PO DAILY [facility] Last Admin: 06/20/19 09:22 Dose: 1,000 unit Documented by: Heparin Sodium (Porcine) (Heparin) 5,000 unit SUB-Q Q12HR [facility] Last Admin: 06/20/19 09:24 Dose: 5,000 unit Documented by: Ceftriaxone Sodium (Rocephin/Ns 1 Gm/50 Ml) 1 gm in 50 mls @ 100 mls/hr IV Q24H [facility]; Protocol Last Admin: 06/20/19 09:25 Dose: 100 mls/hr Documented by: Losartan Potassium (Cozaar) 50 mg PO QDAY [facility] Last Admin: 06/20/19 09:24 Dose: 50 mg Documented by: Nifedipine (Procardia Xl) 60 mg PO QDAY [facility] Last Admin: 06/20/19 09:23 Dose: 60 mg Documented by: Ondansetron HCl (Zofran) 4 mg IV Q8H PRN PRN Reason: Nausea And Vomiting Sodium Bicarbonate (Sodium Bicarbonate) 650 mg PO BID [facility] Last Admin: 06/20/19 09:22 Dose: 650 mg Documented by: Sodium Chloride (Sodium Chloride Flush Syringe 10 Ml) 10 ml IV BID [facility] Last Admin: 06/20/19 09:25 Dose: 10 ml Documented by: Sodium Chloride (Sodium Chloride Flush Syringe 10 Ml) 10 ml IV PRN PRN PRN Reason: LINE FLUSH Torsemide (Demadex) 10 mg PO DAILY [facility] Last Admin: 06/20/19 09:23 Dose: 10 mg Documented by: Review of Systems Constitutional: no weight loss, no weight gain, no fever, no chills, no anorexia, no weakness Breasts: deferred Cardiovascular: syncope, high blood pressure, no chest pain, no orthopnea, no edema, no shortness of breath Respiratory: no cough, no hemoptysis, no shortness of breath Gastrointestinal: no abdominal pain, no nausea, no vomiting, no diarrhea, no melena Genitourinary Female: no dysuria, no hematuria Rectal: no bleeding Musculoskeletal: no morning stiffness, no muscle cramps Integumentary: no rash, no sores, no wounds Neurological: syncope, no paralysis, no convulsions, no change in speech, no change in mentation, no confusion, no memory loss Exam - Vital Signs Vital signs: Vital Signs Temp Pulse Resp BP Pulse Ox 98.1 F 64 16 97/51 100 06/17/19 12:36 06/17/19 12:36 06/17/19 12:36 06/17/19 12:36 06/17/19 12:36 - General Appearance General appearance: well-developed, well-nourished, appears stated age, other (no distress) EENT: ATNC, PERRL, mucous membranes moist, hearing intact, vision intact Neck: Present: neck supple, trachea midline Respiratory: Clear to Ascultation Heart: regular, S1S2, no murmurs Gastrointestinal: Present: normoactive bowel sounds. Absent: tenderness, distended Integumentary: no rash, warm and dry Neurologic: no focal deficit, no asterixis, alert and oriented x3 Musculoskeletal: Present: other (no edema) Results - Lab Results 06/18/19 03:55 06/19/19 04:35 Most recent lab results Calcium 9.2 mg/dL (8.4-10.2) 06/19/19 04:35 Magnesium 2.10 mg/dL (1.7-2.3) 06/17/19 12:37 Assessment and Plan 1. Acute kidney injury: Likely Vasomotor ROLLY superimposed on CKD in the setting of hypotension. UA appears bland. Renal function is better. Monitor renal function. Avoid nephrotoxic agents. Meds dosage based on GFR. 2. FEN: Metabolic acidosis, improving. Monitor lytes. 3. Syncope. 4. Hypotension: Improved. 5. UTI: Abx. F/u with her Instructional Technologist in 1-2 weeks.
[2019-06-20 14:26] VITALS: BP 116/62
== END 2019-06-20 14:05 | disposition home health service (06) | DRG 689 ==
LOC: ED 12:15 → 2B-ACE 17:50
PROVIDERS: ADMIT Internal Medicine; ATTEND Internal Medicine
PROC: 3E0234Z Introduction of Serum, Toxoid and Vaccine into Muscle, Percutaneous Approach (ICD-10-PCS; principal; 2019-06-18)
DX: N30.00 Acute cystitis without hematuria (principal); N17.0 Acute kidney failure with tubular necrosis; E87.2 Acidosis; I12.0 Hypertensive chronic kidney disease with stage 5 chronic kidney disease or end stage renal disease; N18.5 Chronic kidney disease, stage 5; E86.9 Volume depletion, unspecified; R55 Syncope and collapse; I25.10 Atherosclerotic heart disease of native coronary artery without angina pectoris; I95.9 Hypotension, unspecified; I25.2 Old myocardial infarction; Z95.5 Presence of coronary angioplasty implant and graft; Z82.49 Family history of ischemic heart disease and other diseases of the circulatory system; Z79.82 Long term (current) use of aspirin; Z79.899 Other long term (current) drug therapy; Z23 Encounter for immunization
CPT/HCPCS: 36415; 70450; 71045; 72125; 78582; 80048; 80053; 81001; 82550; 82553; 83735; 84443; 84484; 85025; 85379; 87086; 90471; 90732; 93005; 93010; 93306; 93880; 93970; G0378; A9270-GY; A9540; A9558; G0009; J0696; J1644